=== PATIENT | female | born 1960 | race Caucasian/White ===

== ENCOUNTER 2023-12-19 14:10 | Outpatient (OUT) | payer OTHER, SELFPAY ==
--- NOTE | 2023-12-19 14:21 | MR_ITS ---
[address] [address] Patient Name: ANGELINA JOVEL MRN: [id number] date: 1960 Sex: F Assigned Patient Location: MRI Current Patient Location: Accession/Order Number: [id number] Exam Date: 12/19/2023 14:55 Report Date: 12/20/2023 06:38 At the request of: RICHI GO Procedure: MR shoulder RT wo con EXAMINATION: MR shoulder RT wo con HISTORY: Acute Pain Right Shoulder M25.511 COMPARISON: No relevant comparison available. TECHNIQUE: A variety of imaging planes and parameters were utilized for visualization of suspected pathology. Imaging was performed without or with contrast as indicated by examination type. FINDINGS: ROTATOR CUFF REGION CUFF TENDONS: Minimal increased signal intensity in the supraspinatus tendon indicates tendon degeneration and/or tendinitis. No radha tear is seen. CUFF MUSCLES: Normal appearing muscles. DELTOID: No significant atrophy or tear. LONG BICEPS TENDON: Normal. No abnormal signal, attrition, or tear. LABRUM/BICEPS ANCHOR SUPERIOR: Tear of the superior anterior labrum. ANTERIOR/INFERIOR: Tear of the upper anterior labrum. POSTERIOR: No posterior labrum abnormality. CAPSULE No visible capsular laxity or thickening. AC JOINT REGION AC JOINT: Moderate osteoarthropathy with mild-moderate narrowing of the underlying coracoacromial arch. AC LIGAMENTS: Normal acromioclavicular ligament. CC LIGAMENTS: Normal coracoclavicular ligaments. ACROMION: Slight lateral downsloping and small undersurface osteophyte along lateral margin which appears to contact the supraspinatus tendon. SUBACROMIAL BURSA: Trace amount of fluid. HYALINE CARTILAGE: Normal. No visible cartilage narrowing or focal defect. OTHER BONES: Normal proximal humerus, glenoid, and coracoid. OTHER OBSERVATIONS: Negative. No other significant findings or glenohumeral effusion. MR/MR shoulder RT wo con IMPRESSION: 1. Suspect tear of superior and anterior labrum. 2. Mild strain of the supraspinatus tendon. 3. Moderate degenerative changes of the acromioclavicular joint and slight lateral downsloping acromion process with small undersurface osteophyte which would contribute to rotator cuff injury. Electronically authenticated by: RICHI MALLORY Date: 12/20/2023 06:38
== END 2023-12-19 14:11 | disposition home or self-care (01) ==
LOC: MRI 14:12
PROVIDERS: PCP Nurse Practitioner; Visit Provider Orthopaedic Surgery
DX: M25.511 Pain in right shoulder (principal); S46.011A Strain of muscle(s) and tendon(s) of the rotator cuff of right shoulder, initial encounter
CPT/HCPCS: 73221